=== PATIENT | male | born 1990 | race Caucasian/White ===

== ENCOUNTER 2024-01-31 01:49 | Observation (INO) | payer BC, SELFPAY ==
[2024-01-31] VITALS (20 sets, daily range): BP systolic 115–152; BP diastolic 54–100; PULSE 63–96; RESP 16–20; TEMP 36.4–36.9; O2SAT 93–99; BMI 33.0
--- NOTE | 2024-01-31 01:55 | HMH.EDGENADL ---
Discharge Plan Disposition Chief Complaint: Abdominal Pain Clinical Impressions Clinical Impression: Acute cholecystitis Discharge ED Provider: Santhosh Lee General Adult HPI General Chief complaint: Abdominal Pain Stated complaint: sharp abd pain, vomiting Time Seen by Provider: 01/31/24 01:55 History of Present Illness HPI narrative: 33-year-old male without significant past medical history presents with right upper quadrant abdominal pain. He reports this started last week, was only present for a day or so and then went away. It started again on Saturday and has been present since that time, worsening today with associated vomiting. He reports that he is not been pooping as much is normal but he has been passing gas. Normal urination. No prior surgeries. Related Data Allergies Allergy/AdvReac Type Severity Reaction Status Date / Time No Known Allergies Allergy Verified 01/31/24 02:02 [facility] Disclaimer: The information contained in this section may have been updated after the patient was seen, as this information can be updated by other users. Social History Smoking Status: Current every day smoker alcohol intake: never current occupational status: employed Travel in the last 8 weeks: None ROS Obtained: Yes All systems reviewed & no additional complaints except as documented Physical Exam General General appearance: alert and in no apparent distress Head Head exam: atraumatic and normocephalic Eye Eye exam: Present normal appearance, PERRL and EOMI ENT ENT exam: Present normal oropharynx and normal external ear exam Neck Neck exam: Present normal inspection and full ROM Chest Chest inspection: Present normal inspection and symmetric chest wall rise; Absent tenderness Respiratory Respiratory exam: Present normal lung sounds bilaterally; Absent respiratory distress Cardiovascular Cardiovascular exam: Present regular rate and normal rhythm Abdominal Exam Abdominal exam: Present soft and tenderness (Right upper quadrant); Absent distention or guarding Extremities Exam Extremities exam: Present normal inspection; Absent edema or joint swelling Back Exam Back exam: Present normal inspection; Absent tenderness Neurological Exam Neurological exam: Present alert and oriented X3; Absent motor sensory deficit Psychiatric Psychiatric exam: Present normal affect and normal mood Skin Skin exam: Present warm, dry and normal color Lymphatic Lymphatic Findings: no adenopathy Medical Decision Making Medical Records Medical records reviewed: Yes I reviewed the patient's medical records. Screening: Per USPSTF and CDC recommendations, given the prevalence of disease in our region, it is our hospital?s policy to screen for HIV and viral Hepatitis for all patients aged 18 and over and those with ongoing risk factors. Julio Inquiry Pt receiving controlled substance: No Julio was queried for this patient: No Vital Signs: 01/31/24 01:51 01/31/24 03:00 01/31/24 03:30 Temperature 97.6 F Temperature Source Oral Pulse Rate 65 64 Pulse Rate [Right Brachial] 86 Respiratory Rate 18 Blood Pressure 138/88 132/84 Blood Pressure [Right Arm] 147/99 H Blood Pressure Mean [Right Arm] 115 Blood Pressure Source Blood Pressure Source [Right Arm] Automatic Cuff Blood Pressure Position Blood Pressure Position [Right Arm] Supine 02 Sat by Pulse Oximetry 99 97 96 Oxygen Delivery Method Room Air 01/31/24 04:00 01/31/24 04:29 01/31/24 05:19 Temperature 97.6 F Temperature Source Oral Pulse Rate 63 76 74 Pulse Rate [Right Brachial] Respiratory Rate 20 Blood Pressure 120/80 119/69 123/71 Blood Pressure [Right Arm] Blood Pressure Mean [Right Arm] Blood Pressure Source Automatic Cuff Blood Pressure Source [Right Arm] Blood Pressure Position Supine Blood Pressure Position [Right Arm] 02 Sat by Pulse Oximetry 95 96 Oxygen Delivery Method Room Air Lab Data Lab results reviewed: Yes I reviewed the patient's lab results. Lab Results 01/31/24 02:20: WBC 11.6 H, RBC 5.36, Hgb 15.6, Hct 45.5, MCV 84.9, MCH 29.1, MCHC 34.3, RDW 12.2, Plt Count 309, MPV 10.2, Neut % (Auto) 63.2, Lymph % (Auto) 27.3, [place] % (Auto) 8.1, Eos % (Auto) 0.6, Baso % (Auto) 0.5, Neut # (Auto) 7.3, Lymph # (Auto) 3.2, [place] # (Auto) 0.9, Eos # (Auto) 0.1, Baso # (Auto) 0.1, Sodium 138, Potassium 3.9, Chloride 102, Carbon Dioxide 33 H, Anion Gap 6.9, BUN 12, Creatinine 1.00, Estimated Creat Clear 154, Estimated GFR 86, Est GFR ( Amer) 103, Glucose 115 H, Calcium 9.3, Total Bilirubin 0.9, AST 35, ALT 57, Alkaline Phosphatase 79, Total Protein 7.3, Albumin 4.3, Globulin 3.0, Albumin/Globulin Ratio 1.4, Lipase 65 01/31/24 02:20 01/31/24 02:20 Orders (Tests/Meds): ED MEDICATIONS Generic Name Dose Route Start Last Admin Trade Name Freq PRN Reason Stop Dose Admin Acetaminophen 650 mg 01/31/24 05:16 Acetaminophen 325mg Tab PO 03/01/24 05:15 Q4HP PRN Fever or Mild Pain (1-3) Al Hydrox/Mg Hydrox/Simethicone 30 ml 01/31/24 05:16 Aluminum/Magnesium/Simethicone 30ml Udc PO 03/01/24 05:15 QIDP PRN Dyspepsia Lactated Ringer's 1,000 mls @ 999 mls/hr 01/31/24 04:45 01/31/24 05:00 Lactated Ringer's 1000 Ml Bag IV 01/31/24 05:45 999 mls/hr .Q1H1M TREY Administration Piperacillin Sod/Tazobactam 100 mls @ 200 mls/hr 01/31/24 10:00 Sod 4.5 gm/ Sodium Chloride IV 02/07/24 09:59 Q6H TREY Sodium Chloride 1,000 mls @ 125 mls/hr 01/31/24 05:15 Sod Chlor 0.9% 1000ml Bag IV 02/01/24 05:14 .Q8H TREY Morphine Sulfate 2 mg 01/31/24 05:16 Morphine 2mg/Ml Syringe IV 03/01/24 05:15 Q4HP PRN Moderate Pain (4-6) Morphine Sulfate 4 mg 01/31/24 05:16 Morphine 4mg/Ml Syringe IV 03/01/24 05:15 Q4HP PRN Severe Pain (7-10) Nicotine 21 mg 01/31/24 05:16 Nicotine 21mg/24hr Patch TD 03/01/24 05:15 DAILYP PRN Nicotine Cravings Ondansetron HCl 4 mg 01/31/24 05:16 Ondansetron 4mg/2ml Vial IV 03/01/24 05:15 Q8HP PRN Nausea Sodium Chloride 3 ml 01/31/24 05:14 Sodium Chloride 3% 15ml Neb IH 03/01/24 05:13 ONCE PRN INDUCE SPUTUM COLLECTION Discontinued Medications Generic Name Dose Route Start Last Admin Trade Name Freq PRN Reason Stop Dose Admin Piperacillin Sod/Tazobactam 100 mls @ 200 mls/hr 01/31/24 04:45 01/31/24 05:00 Sod 4.5 gm/ Sodium Chloride IV 01/31/24 05:14 200 mls/hr ONCE ONE Administration Iopamidol 75 ml 01/31/24 02:35 01/31/24 02:36 Iopamidol-370 (76%);100ml Bottle IV 01/31/24 02:36 75 ml ONCE ONE Administration Ketorolac Tromethamine 30 mg 01/31/24 02:10 01/31/24 02:29 Ketorolac 30mg/Ml Vial IV 01/31/24 02:11 30 mg ONCE ONE Administration Morphine Sulfate 4 mg 01/31/24 02:10 01/31/24 02:29 Morphine 4mg/Ml Syringe IV 01/31/24 02:11 4 mg ONCE ONE Administration Sodium Chloride 10 ml 01/31/24 02:35 01/31/24 02:36 Sodium Chloride 0.9% 10ml Syr (Rad Only) IV 01/31/24 02:36 10 ml ONCE ONE Administration ORDERS Category Date Time Status CT abdomen pelvis w con Stat Cat Scan 01/31/24 02:10 Completed CBC w/Auto Diff [Complete Blood Count Auto Diff] Stat Lab 01/31/24 02:20 Completed CMP [Comprehensive Metabolic Panel] Stat Lab 01/31/24 02:20 Completed Lipase Stat Lab 01/31/24 02:20 Completed Blood Culture Stat Micro 01/31/24 04:45 Ordered Medical Decision Narrative: 33-year-old male without significant past medical history presents for right upper quadrant pain for the last couple of days. History was obtained via interactive discussion with patient, family. On arrival, patient is [afebrile, hemodynamically stable, satting appropriately, alert, oriented x4, GCS 15], moving all extremities spontaneously. Full physical exam performed and significant for right upper quadrant tenderness Differential includes but is not limited to cholecystitis, choledocholithiasis, ascending cholangitis, constipation, gastroenteritis. Patient was given Toradol morphine for symptomatic management and correction of underlying abnormalities. Workup initiated including CBC CMP lipase CT abdomen pelvis with IV contrast. I attempted bedside ultrasound the right upper quadrant but it was unsuccessful due to obstructing gas. On re-evaluation, patient [remains afebrile, HD stable.] Laboratory workup independently interpreted by me and significant for normal LFTs and lipase. Minimal leukocytosis. Imaging independently interpreted by me and significant for gallbladder wall thickening and pericholecystic fluid which is likely consistent with acute cholecystitis.. See radiology read for full review of final results. Given patient history, exam and workup, patient's presentation most likely represents acute cholecystitis. Patient was initiated on Zosyn and admitted to the hospitalist for further evaluation management with plan for surgery consultation in the morning. Procedures Risk/Benefits of Procedure(s) Were Explained: Yes Critical Care Critical Care Time Critical Care Time: No
--- NOTE | 2024-01-31 02:00 | PC.NURSE ---
at bedside with US
--- NOTE | 2024-01-31 02:10 | CT_ITS ---
PROCEDURE INFORMATION: Exam: CT Abdomen And Pelvis With Contrast Exam date and time: 01/31/2024 2:28 AM Age: 33 years old Clinical indication: Abdominal pain; Localized; Right upper quadrant (ruq); Additional info: Ruq pain TECHNIQUE: Imaging protocol: Computed tomography of the abdomen and pelvis with contrast. Radiation optimization: All CT scans at this facility use at least one of these dose optimization techniques: automated exposure control; mA and/or kV adjustment per patient size (includes targeted exams where dose is matched to clinical indication); or iterative reconstruction. Contrast material: ISOVUE; Contrast volume: 75 ml; Contrast route: IV; COMPARISON: No relevant prior studies available. FINDINGS: Liver: Normal. No mass. Gallbladder and biliary ducts: The gallbladder is mildly distended with wall thickening and pericholecystic fluid. Pancreas: Normal. No ductal dilation. Spleen: Normal. No splenomegaly. Adrenal glands: Normal. No mass. Kidneys and ureters: Normal. No hydronephrosis. Stomach and bowel: Unremarkable. No obstruction. No mucosal thickening. Appendix: No evidence of appendicitis. Intraperitoneal space: Unremarkable. No free air. No significant fluid collection. Vasculature: Unremarkable. No abdominal aortic aneurysm. Lymph nodes: Unremarkable. No enlarged lymph nodes. Urinary bladder: Unremarkable as visualized. Reproductive: Unremarkable as visualized. Bones/joints: Unremarkable. No acute fracture. Soft tissues: Unremarkable. IMPRESSION: The gallbladder is mildly distended with wall thickening and pericholecystic fluid. Suspicious for acute cholecystitis. Sonographic evaluation recommended.
[2024-01-31] MEDS: KETOROLAC 30MG/ML VIAL 30 MG IV (02:29)
[2024-01-31] MEDS: MORPHINE 4MG/ML SYRINGE 4 MG IV ×2 (02:29→17:00)
[2024-01-31] MEDS: IOPAMIDOL-370 (76%);100ML BOTTLE 75 ML IV (02:36)
[2024-01-31] MEDS: SODIUM CHLORIDE 0.9% 10ML SYR (RAD ONLY) 10 ML IV (02:36)
[2024-01-31 02:38] LABS: Red Blood Count 5.36 M/mm3 (4.60-6.20); White Blood Count 11.6 K/mm3 (4.8-10.8)
[2024-01-31 02:39] LABS: Basophils # 0.1 K/mm3 (0-0.2); Basophils % 0.5 % (0.1-2.0); Eosinophils # 0.1 K/mm3 (0.0-0.4); Eosinophils % 0.6 % (0.1-12.0); Hematocrit 45.5 % (42.0-52.0); Hemoglobin 15.6 g/dL (14.1-18.0); Lymphocytes # 3.2 K/mm3 (0.7-4.5); Lymphocytes % 27.3 % (10-50); Mean Corpuscular HGB Conc 34.3 g/dL (31.8-35.4); Mean Corpuscular Hemoglobin 29.1 pg (27.0-31.2); Mean Corpuscular Volume 84.9 fl (80-94); Mean Platelet Volume 10.2 fl (7.4-10.4); Monocytes # 0.9 K/mm3 (0.1-1.0); Monocytes % 8.1 % (1.7-9.3); Neutrophils # 7.3 K/mm3 (1.8-7.8); Neutrophils % 63.2 % (37.0-80.0); Platelet Count 309 K/mm3 (142-424); Red Cell Distribution Width 12.2 % (11.5-17.5)
[2024-01-31 02:42] LABS: Alanine Aminotransferase 57 U/L (12-78); Albumin Level 4.3 g/dl (3.5-5.0); Albumin/Globulin Ratio 1.4 (1.1-1.8); Alkaline Phosphatase 79 U/L (38-126); Anion Gap 6.9 mEq/L (5-15); Aspartate Amino Transferase 35 U/L (17-59); Bilirubin,Total 0.9 mg/dl (0.2-1.3); Blood Urea Nitrogen 12 mg/dl (9-20); Calcium 9.3 mg/dl (8.4-10.2); Carbon Dioxide 33 mmol/L (22.0-30.0); Chloride 102 mmol/L (98-107); Creatinine Clearance Estimated 154 mL/min (50-200); Estimated Glomerular Filt Rate 86 ml/min (>60); GFR (African American) 103 ML/MIN (>60); Glucose 115 mg/dl (74-100); Lipase 65 U/L (23-300); Potassium 3.9 mmoL/L (3.5-5.1); Sodium 138 mmol/L (136-145); Total Protein,Serum 7.3 g/dl (6.3-8.2)
--- NOTE | 2024-01-31 04:51 | P.HP_ITS ---
History of Present Illness *Admission Date: 01/31/24 *Reason for visit:: Right upper quadrant pain, nausea, malaise, decreased p.o. intake *History of present illness: Really nice 33-year-old without significant past medical history except vaping presents with 1 week right upper quadrant pain occurring with nausea and decreased p.o. intake. Patient only significant past medical history is regular vaping nicotine substances. States abdominal discomfort occurring over 1 week happens in 3-day waves. States he has suffered from 1 straight day of abdominal discomfort, that occurs every 3 days. Describes abdominal discomfort is RUQ, occurring with nausea, 8/10, mostly dull but occasionally sharp, occurring with shortness of breath, correlates with meals. Denies chest pain, fevers, chills, recent travel, cough, headache, ataxia, blurry vision. Patient's girlfriend states they have 4 children at home that frequently get colds and respiratory illnesses. States children have cough currently. Patient also admits to current cough. CT abdomen/pelvis shows mildly distended gallbladder with wall thickening and pericholecystic fluid. WBC 11.6, lipase 65, with normal transaminases. Patient admitted for acute cholecystitis evaluation and surgical intervention likely within next 12 hours. Patient's girlfriend lives with patient and collaborated his story in emergency room during my assessment evaluation. [facility] Disclaimer: The information contained in this section may have been updated after the patient was seen, as this information can be updated by other users. Social History (Updated 01/31/24 @ 05:23 by Santhosh Lee MD) Smoking Status: Current every day smoker alcohol intake: never current occupational status: employed Travel in the last 8 weeks: None Review of Systems Review of Systems Review of systems:: pertinent systems reviewed and negative unless documented below Constitutional Constitutional: Reports system reviewed and no additional complaints, except as documented Meds Home Medications and Allergies New Prescriptions to Start Prescriptions: Allergies Allergy/AdvReac Type Severity Reaction Status Date / Time No Known Allergies Allergy Verified 01/31/24 02:02 Exam Data for Last 24 hours Vital signs and Labs for Last 24 Hours: Temp Pulse Resp BP Pulse Ox O2 Del Method 97.6 F 76 18 119/69 96 Room Air 01/31/24 01:51 01/31/24 04:29 01/31/24 01:51 01/31/24 04:29 01/31/24 04:29 01/31/24 01:51 Laboratory Results - last 24 hr 01/31/24 02:20: WBC 11.6 H, RBC 5.36, Hgb 15.6, Hct 45.5, MCV 84.9, MCH 29.1, MCHC 34.3, RDW 12.2, Plt Count 309, MPV 10.2, Neut % (Auto) 63.2, Lymph % (Auto) 27.3, [place] % (Auto) 8.1, Eos % (Auto) 0.6, Baso % (Auto) 0.5, Neut # (Auto) 7.3, Lymph # (Auto) 3.2, [place] # (Auto) 0.9, Eos # (Auto) 0.1, Baso # (Auto) 0.1, Sodium 138, Potassium 3.9, Chloride 102, Carbon Dioxide 33 H, Anion Gap 6.9, BUN 12, Creatinine 1.00, Estimated Creat Clear 154, Estimated GFR 86, Est GFR ( Amer) 103, Glucose 115 H, Calcium 9.3, Total Bilirubin 0.9, AST 35, ALT 57, Alkaline Phosphatase 79, Total Protein 7.3, Albumin 4.3, Globulin 3.0, Albumin/Globulin Ratio 1.4, Lipase 65 I & O for Last 24 hours: Intake & Output 01/28/24 01/29/24 01/30/24 01/31/24 23:59 23:59 23:59 23:59 Weight 104.326 kg Constitutional Constitutional: mild distress and cooperative *Routine HEENT Exam Head: Present normocephalic Eye: Present EOMI ENT: Present mucous membranes dry *Routine Neck Exam Neck: Present supple and full ROM *Routine Respiratory Exam Respiratory: Present CTA bilaterally and normal respiratory effort *Routine Cardiovascular Exam Cardiovascular: Present RRR, Normal S1 and Normal S2 *Routine Abdominal Exam Abdominal: Present soft, normoactive bowel sounds, tenderness (Right upper quadrant) and guarding (Right upper quadrant); Absent rebound *Routine Rectal Exam Rectal:: deferred *Routine Genitalia Exam Genitalia:: deferred *Routine Extremities Exam Extremities: Present full ROM and normal capillary refill *Routine Skin Exam Skin: Present intact and normal turgor *Routine Neurological Exam Neurological: Present alert, oriented X3 and CN II-XII intact Assessment and Plan *Assessment and plan (1) Acute cholecystitis: Status: Acute Category: Medical Code(s): K81.0 - Acute cholecystitis (2) Vapes nicotine containing substance: Status: Acute Category: Social Hx Code(s): Z72.0 - Tobacco use Plan Really nice 33-year-old without significant past medical history except vaping presents with 1 week right upper quadrant pain occurring with nausea and decreased p.o. intake. CT abdomen/pelvis shows mildly distended gallbladder with wall thickening and pericholecystic fluid. WBC 11.6, lipase 65, with normal transaminases. Patient admitted for acute cholecystitis evaluation. Problems as listed below: Imaging/lab work reviewed at time of admission assessment by myself: ?CT abdomen/pelvis: Mildly distended with wall thickening and pericholecystic fluid . ?01/31/24 02:20: WBC 11.6 H, Hgb 15.6, Hct 45.5 Plt Count 309 ?Sodium 138, Potassium 3.9, Chloride 102, Carbon Dioxide 33 H, Anion Gap 6.9, BUN 12, Creatinine 1.00, Estimated Creat Clear 154, Estimated GFR 86, Est GFR ( Amer) 103, Glucose 115 H, Calcium 9.3, Total Bilirubin 0.9, AST 35, ALT 57, Alkaline Phosphatase 79, Total Protein 7.3, Albumin 4.3, Lipase 65 ?I will repeat CMP, CBC, and mag in AM. Acute cholecystitis: ?Order right upper quadrant ultrasound to confirm CT abdomen/pelvis findings of acute cholecystitis and better evaluate common bile duct for dilatation/stones. ? Admit to [facility], n.p.o., IV Zosyn 4.5 g every 6, morphine 2 mg IV every 4 as needed moderate pain, morphine 4 mg IV every 4 as needed severe pain, IV Tylenol 1000 g every 6 as needed pain or fever. MIVF 150 cc/h normal saline with 20 KCl. Consult general surgery for possible cholecystectomy today. Electrolyte replacement protocol. I personally reviewed patient's CT abdomen/pelvis noting no signs of choledocholithiasis, or dilatation of common bile duct. Vaping: Smoking cessation counseling given during my emergency room assessment. Nicotine 21 mg transdermal every 24 as needed nicotine cravings. PPx: SCDs CODE STATUS full FEN n.p.o. with ice chips: And mouth swabs till surgery assessment today MDM: [place]: High, patient with acute cholecystitis requiring emergent surgery and IV antibiotics. Patient's acute cholecystitis poses threat to life and bodily function. Data: High, patient's girlfriend acted as independent historian during my assessment of patient in emergency room. I spoke at length with the emergency room provider Dr. Lee and agree that patient requires immediate hospitalization for IV antibiotics and gallbladder removal to resolve acute cholecystitis.I personally reviewed patient's CT abdomen/pelvis noting no signs of choledocholithiasis, or dilatation of common bile duct. Risk: High, prescription drug management including IV morphine, MIVF, emergent cholecystectomy surgery, and the rest of prescription drug management as listed above. 35 minutes total care time spent on patient by Dr. Rahman 01/31/2024
[2024-01-31] MEDS: PIPERACILLIN/TAZO 4.5 GM in 0.9 % SODIUM CHLORIDE 100 ML IV ×3 (05:00→21:23)
[2024-01-31] MEDS: LACTATED RINGERS 1000ML 1,000 ML 999 ML IV (05:00)
--- NOTE | 2024-01-31 05:06 | PC.NURSE ---
Blood Cultures collected and sent to lab
--- NOTE | 2024-01-31 05:18 | PC.NURSE ---
Report given to BONNIE Luong on second floor
[2024-01-31] MEDS: 0.9% NaCl w/20mEq KCL 1,000 ML 150 ML IV ×2 (06:05→22:31)
--- NOTE | 2024-01-31 07:06 | P.CONS_ITS ---
History of Present Illness *Admission Date: 01/31/24 *Reason for visit:: Cholecystitis *History of present illness: This is a 33-year-old gentleman who presented to the emergency department with increasing right upper quadrant pain. Evaluation included a CT scan that revealed changes consistent with likely acute cholecystitis. Please see HPI forwarded from admission H&P/emergency department evaluation below. Forwarded from admission H&P/emergency department evaluation: Really nice 33-year-old without significant past medical history except vaping presents with 1 week right upper quadrant pain occurring with nausea and decreased p.o. intake. Patient only significant past medical history is regular vaping nicotine substances. States abdominal discomfort occurring over 1 week happens in 3-day waves. States he has suffered from 1 straight day of abdominal discomfort, that occurs every 3 days. Describes abdominal discomfort is RUQ, occurring with nausea, 8/10, mostly dull but occasionally sharp, occurring with shortness of breath, correlates with meals. Denies chest pain, fevers, chills, recent travel, cough, headache, ataxia, blurry vision. Patient's girlfriend states they have 4 children at home that frequently get colds and respiratory illnesses. States children have cough currently. Patient also admits to current cough. CT abdomen/pelvis shows mildly distended gallbladder with wall thickening and pericholecystic fluid. WBC 11.6, lipase 65, with normal transaminases. Patient admitted for acute cholecystitis evaluation and surgical intervention likely within next 12 hours. Patient's girlfriend lives with patient and collaborated his story in emergency room during my assessment evaluation. [facility] Disclaimer: The information contained in this section may have been updated after the patient was seen, as this information can be updated by other users. Social History (Updated 01/31/24 @ 05:23 by Santhosh Lee MD) Smoking Status: Current every day smoker alcohol intake: never current occupational status: employed Travel in the last 8 weeks: None Have you lived/traveled outside [place] in past 30 days?: No Contact w/someone who lives/traveled outside [place] past 30 days?: No Exposure to someone with infectious disease in past 14 days?: No Do you have a fever (greater than 100.4 F or 38 C)?: No Have you tested positive for COVID-19: No Exposed to someone with COVID-19 in past 14 days?: No Do you have a sore throat?: No Do you have a cough?: No Do you have any weakness?: No Do you have any diarrhea?: No Are you experiencing any unusual bleeding?: No Do you have any muscle aches/pain?: No Do you have any abdominal pain?: Yes Are you experiencing loss of taste or smell?: No Meds Home Medications and Allergies Home Medications ?Medication ?Instructions ?Recorded ?Confirmed ?Type No Known Home Medications 01/31/24 01/31/24 History New Prescriptions to Start Prescriptions: Allergies Allergy/AdvReac Type Severity Reaction Status Date / Time No Known Allergies Allergy Verified 01/31/24 02:02 Exam (Inpt) Vital signs and Labs for Last 24 Hours: Temp Pulse Resp BP Pulse Ox O2 Del Method 97.8 F 70 18 123/81 97 Room Air 01/31/24 05:39 01/31/24 05:39 01/31/24 05:39 01/31/24 05:39 01/31/24 05:39 01/31/24 06:34 Laboratory Results - last 24 hr 01/31/24 02:20: WBC 11.6 H, RBC 5.36, Hgb 15.6, Hct 45.5, MCV 84.9, MCH 29.1, MCHC 34.3, RDW 12.2, Plt Count 309, MPV 10.2, Neut % (Auto) 63.2, Lymph % (Auto) 27.3, [place] % (Auto) 8.1, Eos % (Auto) 0.6, Baso % (Auto) 0.5, Neut # (Auto) 7.3, Lymph # (Auto) 3.2, [place] # (Auto) 0.9, Eos # (Auto) 0.1, Baso # (Auto) 0.1, Sodium 138, Potassium 3.9, Chloride 102, Carbon Dioxide 33 H, Anion Gap 6.9, BUN 12, Creatinine 1.00, Estimated Creat Clear 154, Estimated GFR 86, Est GFR ( Amer) 103, Glucose 115 H, Calcium 9.3, Total Bilirubin 0.9, AST 35, ALT 57, Alkaline Phosphatase 79, Total Protein 7.3, Albumin 4.3, Globulin 3.0, Albumin/Globulin Ratio 1.4, Lipase 65 I & O for Labs for Last 24 Hours: Intake & Output 01/28/24 01/29/24 01/30/24 01/31/24 11:59 11:59 11:59 11:59 Weight 230 lb 9.6 oz Constitutional: no acute distress Respiratory: Absent respiratory distress Cardiac: Absent Tachycardia GI: Present soft and tenderness Results Labs 01/31/24 02:20 01/31/24 02:20 Labs: Laboratory Results - last 24 hr 01/31/24 02:20: WBC 11.6 H, RBC 5.36, Hgb 15.6, Hct 45.5, MCV 84.9, MCH 29.1, MCHC 34.3, RDW 12.2, Plt Count 309, MPV 10.2, Neut % (Auto) 63.2, Lymph % (Auto) 27.3, [place] % (Auto) 8.1, Eos % (Auto) 0.6, Baso % (Auto) 0.5, Neut # (Auto) 7.3, Lymph # (Auto) 3.2, [place] # (Auto) 0.9, Eos # (Auto) 0.1, Baso # (Auto) 0.1, Sodium 138, Potassium 3.9, Chloride 102, Carbon Dioxide 33 H, Anion Gap 6.9, BUN 12, Creatinine 1.00, Estimated Creat Clear 154, Estimated GFR 86, Est GFR ( Amer) 103, Glucose 115 H, Calcium 9.3, Total Bilirubin 0.9, AST 35, ALT 57, Alkaline Phosphatase 79, Total Protein 7.3, Albumin 4.3, Globulin 3.0, Albumin/Globulin Ratio 1.4, Lipase [address] scan - abdomen: report reviewed and image reviewed CT scan - pelvis: report reviewed and image reviewed Assessment and Plan *Assessment and plan (1) Acute cholecystitis: Status: Acute Category: Medical Code(s): K81.0 - Acute cholecystitis Plan: Continue current overall medical management as per primary service Laparoscopic cholecystectomy planned for later today I have discussed the risks and benefits including, but not limited to: Bleeding Infection Damage to surrounding tissue Inherent risks of sedation The patient agrees to proceed.
[2024-01-31 08:16] LABS: Adenovirus,PCR Not Detected (NotDetected); Bordetella Pertussis Not Detected (NotDetected); Chlamydophila Pneumoniae, PCR Not Detected (NotDetected); Coronavirus 19, PCR Not Detected (NotDetected); Coronavirus 229E Not Detected (NotDetected); Coronavirus NL63 Not Detected (NotDetected); Coronavirus OC43 Not Detected (NotDetected); Coronovirus HKU1,PCR Not Detected (NotDetected); Human Metapneumovirus Not Detected (NotDetected); Influenza A, PCR Not Detected (NotDetected); Influenza AH1, 2009 Not Detected (NotDetected); Influenza AH1, PCR Not Detected (NotDetected); Influenza AH3,PCR Not Detected (NotDetected); Influenza B, PCR Not Detected (NotDetected); Mycoplasma Pneumoniae, PCR Not Detected (NotDetected); Parainfluenza 1, PCR Not Detected (NotDetected); Parainfluenza 2, PCR Not Detected (NotDetected); Parainfluenza 3, PCR Not Detected (NotDetected); Parainfluenza 4, PCR Not Detected (NotDetected); Respiratory Syncytial Virus Not Detected (NotDetected); Rhinovirus/Enterovirus Not Detected (NotDetected)
--- NOTE | 2024-01-31 11:40 | EXP.ANES.CKL ---
[facility] Disclaimer: The information contained in this section may have been updated after the patient was seen, as this information can be updated by other users. Social History Smoking Status: Current every day smoker alcohol intake: never substance use type: denies use current occupational status: employed Travel in the last 8 weeks: None [facility] Anesthesia Checklist Patient Identification Patient Identification: Arm Band and Verbal (Name & ) Structural Data Admitted From: Inpatient Planned Operative Procedure/s: Lap cholecystectomy Consent for Planned Operative Procedure(s) Verified: Yes Verified Documents: Surgical Consent and History and Physical NPO Status Verified Time NPO: 00:00 Chart Verification Results Verified: CBC and BMP Additional verifications Anesthesia Reactions: No Airway Assessment Mallampati Score:: Class II C-Spine Mobility Assessed: Yes TMJ Mobility Assessed: Yes Dentition: Good Dentition Neurological Assessment Level of Consciousness: Awake Hx Seizures: No Numbness or tingling in extremities: No Anesthesia Plan Anesthesia Risk discussed: Yes Anesthesia Plan: Verified ASA Class: II Anesthesia Type: General
[2024-01-31] MEDS: LIDOCAINE 1% 20ML MDV 20 ML (12:15)
--- NOTE | 2024-01-31 14:01 | P.OP_ITS ---
Date of procedure: 01/31/24 Pre-op Diagnosis:: Acute cholecystitis Post-op Diagnosis:: Acute calculus cholecystitis Gallbladder hydrops Procedure performed:: Laparoscopic cholecystectomy Surgeon:: Jean Carlos Pike MD [employer]GER:: Johnson Ortega Anesthesia: GETA Estimated blood loss (mL): 15 Operative findings:: Significant gallbladder distention Hydropic gallbladder Multiple large stones and firm sludge throughout gallbladder Profound soft tissue stranding/infundibular thickening Operative note:: After informed consent was obtained, the patient was taken to the operating room and placed in the supine position. General anesthesia was induced and the abdomen was prepped and draped in a sterile fashion. After infiltration with local anesthetic an infraumbilical incision was made. A Veress needle was placed in position. The abdomen was insufflated. A 5 mm optical trocar was placed in position. Under direct visualization, a 12 mm trocar was placed in the subxiphoid position and 2 additional 5 mm trocars were placed in the right upper quadrant. Significant gallbladder distention noted. The gallbladder was elevated up and over the liver margin. Harmonic adriana were utilized to create a small opening along the dome of the gallbladder at which time hydropic fluid was evacuated. Profound soft tissue thickening noted throughout with even greater severity in/around the infundibular region. The tissue around the cystic duct was carefully dissected. No obvious injury to surrounding structures noted. 3 clips were placed proximally and the duct was transected with harmonic adriana. The cystic artery was dissected free from surrounding tissue and controlled with combination of 2 clips and harmonic adriana. The gallbladder wall was exceedingly thickened and soft tissue dissection was exceptionally difficult/tedious. Harmonic adriana were then utilized to dissect the gallbladder away from the liver margin. The gallbladder was placed in a retrieval bag and removed through the subxiphoid trocar site. The right upper quadrant was thoroughly irrigated. No active bleeding or bile leak was noted. Fascia at the subxiphoid trocar site was reapproximated utilizing 0 Ethibond. The remaining trocars were removed. All wounds were irrigated and skin was closed with 4-0 Monocryl in an interrupted mattress fashion to facilitate hemostasis. The patient's anesthetic agents were reversed and extubation was completed prior to transfer to recovery in stable condition. Condition: stable Disposition: PACU Specimens:: Gallbladder Complications:: No immediate
--- NOTE | 2024-01-31 14:08 | EXP.ANES.I ---
[facility] Anesthesia Record Part I Anesthesia Record I Intake, IV Amount: 1,200 Hydration: Adequate Estimated blood loss (mL): 10 Urine output (mL): 0 Blood Products used (#): none Blood Pressure: 142/81 SaO2: 93 Pulse Rate: 91 Airway Patency: Patent Respiratory Rate: 16 Temperature: 98.5 F Patient is:: Drowsy and Stable Stable to PACU at:: 14:05
[2024-01-31] MEDS: MORPHINE 2MG/ML SYRINGE 2 MG IV ×2 (14:47→21:23)
--- NOTE | 2024-01-31 14:50 | P.PNANES_ITS ---
[facility] Anesthesia Record Part II Anesthesia Record Part II Discharge Time: 14:35 Destination: Medical Surgical Department PACU nurse assessment reviewed?: Yes Patient Condition:: Good Anesthesia Complications:: None Swallowing reflex intact?: Yes Airway Patency: Patent Cyanosis?: No Blood Pressure: 152/91 SaO2: 97 Respiratory Rate: 16 Pulse Rate: 83 Temperature: 98.5 F Mental Status: Alert & Oriented Pain level:: 0 Nausea and/or vomitting:: None Intake, IV Amount: 0 Hydration: Adequate
--- NOTE | 2024-01-31 14:52 | PC.NURSE ---
4 abd sites with tegaderm and 2x2 c/d/i.
--- NOTE | 2024-01-31 16:01 | PC.NURSE ---
Pt request to be disconnected from bp machine.
--- NOTE | 2024-01-31 17:20 | PC.NURSE ---
Aox 4, up ad kathleen, 18g r ac with NS + 20K AT 150 ml/hr, requested pain meds twice since back from surgery.
--- NOTE | 2024-01-31 17:34 | EXP.PN ---
Subjective *Date: 01/31/24 *Time: 17:34 Interval history: Patient drowsy and sedated after surgery today. Discussed with surgery, will monitor overnight given the complexity of the surgery for anticipated discharge in the morning. Exam Data for Last 24 hours Vital signs and Labs for Last 24 Hours: Temp Pulse Resp BP Pulse Ox O2 Del Method 97.6 F 84 16 137/81 97 Room Air 01/31/24 15:30 01/31/24 15:30 01/31/24 15:30 01/31/24 15:30 01/31/24 15:30 01/31/24 15:30 Laboratory Results - last 24 hr 01/31/24 02:20: WBC 11.6 H, RBC 5.36, Hgb 15.6, Hct 45.5, MCV 84.9, MCH 29.1, MCHC 34.3, RDW 12.2, Plt Count 309, MPV 10.2, Neut % (Auto) 63.2, Lymph % (Auto) 27.3, [place] % (Auto) 8.1, Eos % (Auto) 0.6, Baso % (Auto) 0.5, Neut # (Auto) 7.3, Lymph # (Auto) 3.2, [place] # (Auto) 0.9, Eos # (Auto) 0.1, Baso # (Auto) 0.1, Sodium 138, Potassium 3.9, Chloride 102, Carbon Dioxide 33 H, Anion Gap 6.9, BUN 12, Creatinine 1.00, Estimated Creat Clear 154, Estimated GFR 86, Est GFR ( Amer) 103, Glucose 115 H, Calcium 9.3, Total Bilirubin 0.9, AST 35, ALT 57, Alkaline Phosphatase 79, Total Protein 7.3, Albumin 4.3, Globulin 3.0, Albumin/Globulin Ratio 1.4, Lipase 65 01/31/24 05:24: Chlamy pneumoniae PCR Not detected, Adenovirus (PCR) Not detected, B. pertussis DNA (PCR) Not detected, Coronavirus OC43 (PCR) Not detected, Coronavirus HKU1 (PCR) Not detected, Coronavirus 229E (PCR) Not detected, SARS-CoV-2 (PCR) Not detected, Coronavirus NL63 (PCR) Not detected, Human Metapneumovir PCR Not detected, Influenza A (H1) PCR Not detected, Influ A (H1N1/09) PCR Not detected, Influenza A (H3) PCR Not detected, Influenza Type A (PCR) Not detected, Influenza Type B (PCR) Not detected, M. pneumoniae (PCR) Not detected, Parainfluenza 1 (PCR) Not detected, Parainfluenza 2 (PCR) Not detected, Parainfluenza 3 (PCR) Not detected, Parainfluenza 4 (PCR) Not detected, RSV (PCR) Not detected, Entero/Rhino (PCR) Not detected I & O for Last 24 hours: Intake & Output 01/28/24 01/29/24 01/30/24 01/31/24 23:59 23:59 23:59 23:59 Intake Total 1750 / 1750 Balance 1750 / 1750 Weight 104.598 kg Constitutional Constitutional: no acute distress *Routine HEENT Exam Head: Present normocephalic Eye: Present EOMI and PERRL ENT: Present mucous membranes moist *Routine Neck Exam Neck: Present supple; Absent lymphadenopathy *Routine Respiratory Exam Respiratory: Present CTA bilaterally *Routine Cardiovascular Exam Cardiovascular: Present RRR *Routine Abdominal Exam Abdominal: Present soft and normoactive bowel sounds; Absent tenderness Comments: 4 abdominal incision sites without signs of complications at this time. *Routine Extremities Exam Extremities: Absent cyanosis, clubbing or edema *Routine Skin Exam Skin: Present warm; Absent rash *Routine Neurological Exam Neurological: Present alert and oriented X3 Assessment and Plan *Assessment and plan (1) Acute cholecystitis: Status: Acute Category: Medical Code(s): K81.0 - Acute cholecystitis (2) Vapes nicotine containing substance: Status: Acute Category: Social Hx Code(s): Z72.0 - Tobacco use Plan Obinna Encinas is a 33-year-old without significant past medical history except vaping presents with 1 week right upper quadrant pain occurring with nausea and decreased p.o. intake. CT abdomen/pelvis shows mildly distended gallbladder with wall thickening and pericholecystic fluid. WBC 11.6, lipase 65, with normal transaminases. Patient admitted for acute cholecystitis evaluation. Problems as listed below: #Acute cholecystitis ? S/p cholecystectomy on 01/31/2024. ? Discussed with general surgery, recommended monitoring overnight for anticipate discharge tomorrow. ? WBC 11.6, continue monitor. ? Continue Zosyn. ? Full liquid diet for now, advance to bland diet in the morning. ? Pain control with morphine as needed. Vaping: Smoking cessation counseling given during my emergency room assessment. Nicotine 21 mg transdermal every 24 as needed nicotine cravings. PPx: SCDs CODE STATUS full
[2024-02-01] VITALS: BP 117/66; PULSE 71; RESP 18; TEMP 36.9; O2SAT 96
[2024-02-01 04:00] VITALS: BP 123/75; PULSE 76; RESP 18; TEMP 36.5; O2SAT 98; BMI 34.2
[2024-02-01] MEDS: 0.9% NaCl w/20mEq KCL 1,000 ML 150 ML IV (04:56)
[2024-02-01] MEDS: PIPERACILLIN/TAZO 4.5 GM in 0.9 % SODIUM CHLORIDE 100 ML IV ×2 (04:56→09:00)
[2024-02-01] MEDS: MORPHINE 2MG/ML SYRINGE 2 MG IV (04:56)
--- NOTE | 2024-02-01 06:09 | PC.NURSE ---
Pt A&OX4 and has tolerated room air. He has ambulated independently to the bathroom. Dressing over incision sites are c/d/i. He has complained of abdominal pain two times this shift and was medicated per APR. No other complaints at this time, call light within reach.
[2024-02-01 07:29] LABS: Albumin Level 3.6 g/dl (3.5-5.0); Chloride 111 mmol/L (98-107)
[2024-02-01 07:30] LABS: Potassium 4.3 mmoL/L (3.5-5.1); Sodium 135 mmol/L (136-145)
[2024-02-01 07:32] LABS: Alanine Aminotransferase 95 U/L (12-78); Albumin/Globulin Ratio 1.3 (1.1-1.8); Anion Gap 5.3 mEq/L (5-15); Aspartate Amino Transferase 81 U/L (17-59); Bilirubin,Total 0.9 mg/dl (0.2-1.3); Blood Urea Nitrogen 9 mg/dl (9-20); Carbon Dioxide 23 mmol/L (22.0-30.0); Creatinine Clearance Estimated 199 mL/min (50-200); Estimated Glomerular Filt Rate 111 ml/min (>60); GFR (African American) 134 ML/MIN (>60); Globulin 2.7 g/dL (1.3-3.2); Total Protein,Serum 6.3 g/dl (6.3-8.2)
[2024-02-01 07:33] LABS: Alkaline Phosphatase 75 U/L (38-126); Calcium 8.1 mg/dl (8.4-10.2); Glucose 110 mg/dl (74-100); Magnesium 1.9 mg/dl (1.6-2.3)
[2024-02-01 07:47] LABS: Hematocrit 40.8 % (42.0-52.0); Hemoglobin 13.8 g/dL (14.1-18.0); Mean Corpuscular HGB Conc 33.8 g/dL (31.8-35.4); Mean Corpuscular Hemoglobin 29.1 pg (27.0-31.2); Mean Corpuscular Volume 85.9 fl (80-94); Platelet Count 306 K/mm3 (142-424); Red Blood Count 4.75 M/mm3 (4.60-6.20); Red Cell Distribution Width 12.3 % (11.5-17.5); White Blood Count 13.6 K/mm3 (4.8-10.8)
[2024-02-01 07:48] LABS: Basophils % 0.3 % (0.1-2.0); Eosinophils % 0.1 % (0.1-12.0); Lymphocytes # 2.4 K/mm3 (0.7-4.5); Lymphocytes % 17.8 % (10-50); Monocytes # 0.9 K/mm3 (0.1-1.0); Monocytes % 6.4 % (1.7-9.3); Neutrophils # 10.2 K/mm3 (1.8-7.8); Neutrophils % 75.2 % (37.0-80.0)
[2024-02-01 08:00] VITALS: BP 123/67; PULSE 77; RESP 19; TEMP 36.4; O2SAT 100
[2024-02-01] MEDS: MAGNESIUM SULFATE IN WATER 2 GM/50 ML PIGGYBACK IV (08:42)
--- NOTE | 2024-02-01 09:58 | EXP.SURG.PN ---
Subjective Patient reports: no new complaints Exam Data for Last 24 hours Vital signs and Labs for Last 24 Hours: Temp Pulse Resp BP Pulse Ox O2 Del Method 97.6 F 77 19 123/67 100 Room Air 02/01/24 08:00 02/01/24 08:00 02/01/24 08:00 02/01/24 08:00 02/01/24 08:00 02/01/24 08:00 Laboratory Results - last 24 hr 01/31/24 05:24: Chlamy pneumoniae PCR Not detected, Adenovirus (PCR) Not detected, B. pertussis DNA (PCR) Not detected, Coronavirus OC43 (PCR) Not detected, Coronavirus HKU1 (PCR) Not detected, Coronavirus 229E (PCR) Not detected, SARS-CoV-2 (PCR) Not detected, Coronavirus NL63 (PCR) Not detected, Human Metapneumovir PCR Not detected, Influenza A (H1) PCR Not detected, Influ A (H1N1/09) PCR Not detected, Influenza A (H3) PCR Not detected, Influenza Type A (PCR) Not detected, Influenza Type B (PCR) Not detected, M. pneumoniae (PCR) Not detected, Parainfluenza 1 (PCR) Not detected, Parainfluenza 2 (PCR) Not detected, Parainfluenza 3 (PCR) Not detected, Parainfluenza 4 (PCR) Not detected, RSV (PCR) Not detected, Entero/Rhino (PCR) Not detected 02/01/24 07:08: WBC 13.6 H, RBC 4.75, Hgb 13.8 L, Hct 40.8 L, MCV 85.9, MCH 29.1, MCHC 33.8, RDW 12.3, Plt Count 306, MPV 10.0, Neut % (Auto) 75.2, Lymph % (Auto) 17.8, [place] % (Auto) 6.4, Eos % (Auto) 0.1, Baso % (Auto) 0.3, Neut # (Auto) 10.2 H, Lymph # (Auto) 2.4, [place] # (Auto) 0.9, Eos # (Auto) 0.0, Baso # (Auto) 0.0, Sodium 135 L, Potassium 4.3, Chloride 111 H, Carbon Dioxide 23, Anion Gap 5.3, BUN 9, Creatinine 0.80, Estimated Creat Clear 199, Estimated GFR 111, Est GFR ( Amer) 134 D, Glucose 110 H, Calcium 8.1 L, Magnesium 1.9, Total Bilirubin 0.9, AST 81 H D, ALT 95 H D, Alkaline Phosphatase 75, Total Protein 6.3, Albumin 3.6 D, Globulin 2.7, Albumin/Globulin Ratio 1.3 I & O for Last 24 hours: Intake & Output 01/29/24 01/30/24 01/31/24 02/01/24 11:59 11:59 11:59 11:59 Intake Total 3152 / 3152 Output Total 0 / 0 Balance 3152 / 3152 Weight 230 lb 9.6 oz 238 lb 11.2 oz Microbiology Reports for the Last 24 Hours: Microbiology 01/31/24 04:58 Blood Blood Culture - Preliminary NO GROWTH AFTER 24 HOURS 01/31/24 04:58 Blood Blood Culture - Preliminary NO GROWTH AFTER 24 HOURS Constitutional Constitutional: no acute distress *Routine Respiratory Exam Respiratory: Absent respiratory distress *Routine Cardiovascular Exam Cardiovascular: Absent tachycardia *Routine Abdominal Exam Abdominal: Present soft Comments: Dressings intact. No spreading cellulitis Progress Note: A&P Assessment and plan (1) Acute cholecystitis due to biliary calculus: Status: Acute Assessment and plan: Overall, doing well status post laparoscopic cholecystectomy Okay from surgical standpoint for discharge home with close outpatient follow-up
--- NOTE | 2024-02-01 10:42 | EXP.DC.SUM ---
General Admission date:: 01/31/24 HPI HPI HPI: This is a 33-year-old gentleman who presented to the emergency department with increasing right upper quadrant pain. Evaluation included a CT scan that revealed changes consistent with likely acute cholecystitis. Please see HPI forwarded from admission H&P/emergency department evaluation below. Forwarded from admission H&P/emergency department evaluation: Manjeet galeano 33-year-old without significant past medical history except vaping presents with 1 week right upper quadrant pain occurring with nausea and decreased p.o. intake. Patient only significant past medical history is regular vaping nicotine substances. States abdominal discomfort occurring over 1 week happens in 3-day waves. States he has suffered from 1 straight day of abdominal discomfort, that occurs every 3 days. Describes abdominal discomfort is RUQ, occurring with nausea, 8/10, mostly dull but occasionally sharp, occurring with shortness of breath, correlates with meals. Denies chest pain, fevers, chills, recent travel, cough, headache, ataxia, blurry vision. Patient's girlfriend states they have 4 children at home that frequently get colds and respiratory illnesses. States children have cough currently. Patient also admits to current cough. CT abdomen/pelvis shows mildly distended gallbladder with wall thickening and pericholecystic fluid. WBC 11.6, lipase 65, with normal transaminases. Patient admitted for acute cholecystitis evaluation and surgical intervention likely within next 12 hours. Patient's girlfriend lives with patient and collaborated his story in emergency room during my assessment evaluation. Hospital Course Hospital Course Hospital Course: Obinna Encinas is a 33-year-old without significant past medical history except vaping presents with 1 week right upper quadrant pain occurring with nausea and decreased p.o. intake. CT abdomen/pelvis shows mildly distended gallbladder with wall thickening and pericholecystic fluid. WBC 11.6, lipase 65, with normal transaminases. Patient admitted for acute cholecystitis evaluation. Problems as listed below: #Acute cholecystitis ? S/p cholecystectomy on 01/31/2024. ? General Surgery recommended monitoring overnight. ? Tolerating diet without nausea/vomiting, ambulating without assistance. ? Medically stable for discharge. Will follow-up with surgery in 2 weeks. ? Discharged with Augmentin for 3 more days. ? Low residue diet to start, advance as tolerated. Vaping: Smoking cessation counseling given during my emergency room assessment. Nicotine 21 mg transdermal every 24 as needed nicotine cravings. Exam Data for Last 24 hours Vital signs and Labs for Last 24 Hours: Temp Pulse Resp BP Pulse Ox O2 Del Method 97.6 F 77 19 123/67 100 Room Air 02/01/24 08:00 02/01/24 08:00 02/01/24 08:00 02/01/24 08:00 02/01/24 08:00 02/01/24 08:00 Laboratory Results - last 24 hr 02/01/24 07:08: WBC 13.6 H, RBC 4.75, Hgb 13.8 L, Hct 40.8 L, MCV 85.9, MCH 29.1, MCHC 33.8, RDW 12.3, Plt Count 306, MPV 10.0, Neut % (Auto) 75.2, Lymph % (Auto) 17.8, [place] % (Auto) 6.4, Eos % (Auto) 0.1, Baso % (Auto) 0.3, Neut # (Auto) 10.2 H, Lymph # (Auto) 2.4, [place] # (Auto) 0.9, Eos # (Auto) 0.0, Baso # (Auto) 0.0, Sodium 135 L, Potassium 4.3, Chloride 111 H, Carbon Dioxide 23, Anion Gap 5.3, BUN 9, Creatinine 0.80, Estimated Creat Clear 199, Estimated GFR 111, Est GFR ( Amer) 134 D, Glucose 110 H, Calcium 8.1 L, Magnesium 1.9, Total Bilirubin 0.9, AST 81 H D, ALT 95 H D, Alkaline Phosphatase 75, Total Protein 6.3, Albumin 3.6 D, Globulin 2.7, Albumin/Globulin Ratio 1.3 I & O for Last 24 hours: Intake & Output 01/29/24 01/30/24 01/31/24 02/01/24 23:59 23:59 23:59 23:59 Intake Total 1750 / 2912 1402 / 1402 Output Total 0 / 0 Balance 1750 / 2912 1402 / 1402 Weight 104.598 kg 108.272 kg Microbiology Reports for the Last 24 Hours: Microbiology 01/31/24 04:58 Blood Blood Culture - Preliminary NO GROWTH AFTER 24 HOURS 01/31/24 04:58 Blood Blood Culture - Preliminary NO GROWTH AFTER 24 HOURS Constitutional Constitutional: no acute distress *Routine HEENT Exam Head: Present normocephalic Eye: Present EOMI and PERRL ENT: Present mucous membranes moist *Routine Neck Exam Neck: Present supple; Absent lymphadenopathy *Routine Respiratory Exam Respiratory: Absent respiratory distress *Routine Cardiovascular Exam Cardiovascular: Absent tachycardia *Routine Abdominal Exam Abdominal: Present soft Comments: Dressings intact. No spreading cellulitis *Routine Extremities Exam Extremities: Absent cyanosis, clubbing or edema *Routine Skin Exam Skin: Present warm; Absent rash *Routine Neurological Exam Neurological: Present alert and oriented X3 Results Data Completed and Pending Labs on day of discharge: Labs from last 24 hours 02/01/24 07:08 WBC 13.6 H RBC 4.75 Hgb 13.8 L Hct 40.8 L MCV 85.9 MCH 29.1 MCHC 33.8 RDW 12.3 Plt Count 306 MPV 10.0 Neut % (Auto) 75.2 Lymph % (Auto) 17.8 [place] % (Auto) 6.4 Eos % (Auto) 0.1 Baso % (Auto) 0.3 Neut # (Auto) 10.2 H Lymph # (Auto) 2.4 [place] # (Auto) 0.9 Eos # (Auto) 0.0 Baso # (Auto) 0.0 Sodium 135 L Potassium 4.3 Chloride 111 H Carbon Dioxide 23 Anion Gap 5.3 BUN 9 Creatinine 0.80 Estimated Creat Clear 199 Estimated GFR 111 Est GFR ( Amer) 134 D Glucose 110 H Calcium 8.1 L Magnesium 1.9 Total Bilirubin 0.9 AST 81 H D ALT 95 H D Alkaline Phosphatase 75 Total Protein 6.3 Albumin 3.6 D Globulin 2.7 Albumin/Globulin Ratio 1.3 Preliminary micro results at discharge 01/31/24 04:58 Blood Culture - Preliminary Blood NO GROWTH AFTER 24 HOURS 01/31/24 04:58 Blood Culture - Preliminary Blood NO GROWTH AFTER 24 HOURS DS: Diagnosis Discharge Diagnosis (1) Acute cholecystitis due to biliary calculus: Status: Acute Code(s): K80.00 - Calculus of gallbladder with acute cholecystitis without obstruction Meds Home Medications and Allergies Home Medications ?Medication ?Instructions ?Recorded ?Confirmed ?Type amoxicillin 500 mg-potassium 1 tab PO BID 3 days #6 tabs 02/01/24 Rx clavulanate 125 mg tablet (Augmentin) hydrocodone 5 mg-acetaminophen 325 1 tab PO Q6H PRN post-op pain #13 02/01/24 Rx mg tablet tabs New Prescriptions to Start Prescriptions: amoxicillin-pot clavulanate [Augmentin] Ricardo Kerr hydrocodone-acetaminophen Jean Carlos Pike Allergies Allergy/AdvReac Type Severity Reaction Status Date / Time No Known Allergies Allergy Verified 01/31/24 02:02 Discharge Plan Disposition Patient Disposition: Home, Self-Care Follow up Plan Follow up with: Asmita Chew APRN [Nurse Practitioner] - 02/20/24 11:00 am Jean Carlos Pike MD [Staff Physician] - 02/14/24 1:30 pm (schedule appt with [facility] for suture removal on 02/05 or 02/06) Prescriptions/Medication Reconciliation: New hydrocodone-acetaminophen 5-325 mg tablet 1 tab PO Q6H PRN (Reason: post-op pain) Qty: 13 0RF amoxicillin-pot clavulanate [Augmentin] 500-125 mg tablet 1 tab PO BID 3 Days Qty: 6 0RF Problem Reconciliation Problems Reviewed?: Yes Patient Discharge Instructions ACTIVITY: Ambulate as tolerated and No heavy lifting DIET: advance to your usual diet Additional Instructions: Remove dressings on February 02, 2024 Shower after dressings removed Patient Instructions: Gallstones, DI for Surgical Site Infection, DI for Laparoscopic Cholecystectomy Print Language: Maldivian Providers Primary Care Provider: Provider,Referral Admit Provider: Ricardo Kerr Attending Provider: Ricardo Kerr
--- NOTE | 2024-02-03 11:25 | SW/DCPLANNER ---
Spoke with patient on the phone. Patient stated that he is doing pretty good and that he has no concerns or questions at this time. 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 Rigo Hou
== END 2024-02-01 11:29 | disposition home or self-care (01) ==
LOC: ER 05:11 → 2ND 06:33
PROVIDERS: Internal Medicine; Surgery; Admitting Provider Student in an Organized Health Care Education/Training Program; Emergency Provider Emergency Medicine; Visit Provider Student in an Organized Health Care Education/Training Program
PROC: 0FT44ZZ Resection of Gallbladder, Percutaneous Endoscopic Approach (ICD-10-PCS; CPT 47562; principal; 2024-01-31 11:00)
DX: K80.12 Calculus of gallbladder with acute and chronic cholecystitis without obstruction (principal); F17.290 Nicotine dependence, other tobacco product, uncomplicated
CPT/HCPCS: 47562; 36415; 74177; 80053; 83690; 83735; 85025; 87040; 87633; 99285; J3490; G0378; J1100; J1885; J2250; J2270; J2405; J2543; J3010; J3475; J7120; Q9967